=== PATIENT | female | born 1995 | race Hispanic/Latino ===

== ENCOUNTER 2018-02-22 14:57 | Emergency (ER) | payer OTHER, MEDICAID, SELFPAY ==
[2018-02-22 15:12] VITALS: BP 121/76; PULSE 89; RESP 15; TEMP 36.1; O2SAT 100; BMI 29.2
--- NOTE | 2018-02-22 15:16 | DI.RAD.S_ITS ---
PROCEDURE: XR ELBOW LT MIN 3V INDICATIONS: left elbow pain after fall yesterday TECHNIQUE: 3 views of the elbow were acquired. COMPARISON: None. FINDINGS: Bones: No fractures or dislocations. No suspicious bony lesions. Soft tissues: No elbow joint effusion. No suspicious soft tissue calcifications. IMPRESSION: No osseous trauma found. Dictated by: Neymar Jacobs M.D. on 02/22/2018 at 15:38 Approved by: Neymar aJcobs M.D. on 02/22/2018 at 15:40
--- NOTE | 2018-02-22 16:35 | ED_ITS ---
HPI - Extremity Injury (Upper) <SOL Ca - Last Filed: 02/22/18 17:43> General Chief Complaint: Extremity Injury, Upper Stated Complaint: FALL LEFT ARM HURTS Time Seen by Provider: 02/22/18 16:19 Source: patient Mode of arrival: ambulatory Limitations: no limitations History of Present Illness HPI narrative: Patient is a 22-year-old female who presents with chief complaint of left elbow pain. She states she was walking down the stairs yesterday and tripped and hit her left elbow hard against a railing. She states she presents complaining of left elbow pain. She states that it is hard to open her elbow all the way she complains of transient tingling in her left hand. She states she has a history of a ligament problem in her left elbow. She wants to make sure left elbow was not broken. She denies any swelling or bruising. Related Data Previous Rx's Medication Instructions Recorded tramadol 50 mg PO Q6H PRN #7 tab 02/22/18 Allergies Allergy/AdvReac Type Severity Reaction Status Date / Time amoxicillin Allergy Unknown Verified 02/22/18 15:12 Iodinated Contrast- Oral and Allergy Verified 02/22/18 15:12 IV Dye Review of Systems <SOL Ca - Last Filed: 02/22/18 17:43> Review of Systems GENERAL: Denies chills, fatigue, malaise, fever, sweats. HEENT: Denies sinus pain, ear pain, sore throat, difficulty swallowing, dizziness. RESPIRATORY: Denies dyspnea, cough, wheezing, hemoptysis, sputum. CARDIOVASCULAR: Denies chest pain, palpitations, orthopnea, edema, GASTROINTESTINAL: Denies nausea, vomiting, abdominal pain, diarrhea, constipation, melena. : Denies dysuria, frequency, incontinence, hematuria, urinary retention. MUSCULOSKELETAL: see HPI SKIN: See HPI NEUROLOGIC: Denies weakness, headache, numbness, change in speech, confusion, seizures, incoordination. PSYCHIATRIC: No concerning psychosocial issues. 12 point review of systems is negative except for those stated above Exam <SOL Ca - Last Filed: 02/22/18 17:43> Narrative Exam Narrative: GENERAL: This is a well-nourished, well-developed patient, In no acute distress HEAD: Atraumatic. Normocephalic. No temporal or scalp tenderness. EYES: Pupils equal round and reactive. Extraocular motions intact. No scleral icterus. No injection or drainage. ENT: Nose without bleeding, purulent drainage or septal hematoma. Throat without erythema, tonsillar hypertrophy or exudate. Uvula midline. Airway patent. NECK: Trachea midline. No JVD or lymphadenopathy. Supple, nontender, no meningeal signs. CARDIOVASCULAR: Regular rate and rhythm without murmurs, gallops, or rubs. RESPIRATORY: Clear to auscultation. Breath sounds equal bilaterally. No wheezes , rales, or rhonchi. GASTROINTESTINAL: Abdomen soft, non-tender, nondistended. No hepato-splenomegaly , or palpable masses. No guarding. EXTREMITIES: Generalized pain to palpation left elbow. Patient can extend elbow to approximately 160?. Positive radial pulse left hand. Patient is able to flex left elbow fully, pronate and supinate left forearm BACK: Nontender without deformity or crepitance. No flank tenderness. NEURO: AOx3. SKIN: no visible ecchymosis or erythema noted left elbow. Initial Vital Signs Initial Vital Signs: Vital Signs Temperature 97.0 F L 02/22/18 15:12 Pulse Rate 89 02/22/18 15:12 Respiratory Rate 15 02/22/18 15:12 Blood Pressure 121/76 02/22/18 15:12 Pulse Oximetry 100 02/22/18 15:12 <Castro Aguilar DO - Last Filed: 02/22/18 20:04> Initial Vital Signs Initial Vital Signs: Vital Signs Temperature 97.0 F L 02/22/18 15:12 Pulse Rate 89 02/22/18 15:12 Respiratory Rate 15 02/22/18 15:12 Blood Pressure 121/76 02/22/18 15:12 Pulse Oximetry 100 02/22/18 15:12 Course <CASSIE CaBC - Last Filed: 02/22/18 17:43> Orders Ordered: ED Orders 02/22/18 15:16 XR elbow LT min 3V Stat Discontinued Medications Tramadol HCl (Ultram) 50 mg PO NOW ONE Stop: 02/22/18 16:33 Vital Signs - 8 hr 02/22/18 15:12 Temperature 97.0 F L Pulse Rate 89 Respiratory Rate 15 Blood Pressure 121/76 Pulse Oximetry 100 <Castro Aguilar DO - Last Filed: 02/22/18 20:04> Orders Ordered: ED Orders 02/22/18 15:16 XR elbow LT min 3V Stat Discontinued Medications Tramadol HCl (Ultram) 50 mg PO NOW ONE Stop: 02/22/18 16:33 Vital Signs - 8 hr 02/22/18 15:12 Temperature 97.0 F L Pulse Rate 89 Respiratory Rate 15 Blood Pressure 121/76 Pulse Oximetry 100 [facility] - Extremity Injury (Upper) <SOL Ca - Last Filed: 02/22/18 17:43> Imaging Data elbow xray : Radiologist's impression: [address] [address] XRay Report Signed Patient: Omaira Aguirre#: [id number] : 1995Acct:[id number] Age/Sex: 22 / FDate of Service: 02/22/18 Loc: ED Accession Number: [id number] Procedure: XR elbow LT min 3V Ordering Provider: Castro Aguilar D.O. PROCEDURE: XR ELBOW LT MIN 3V INDICATIONS: left elbow pain after fall yesterday TECHNIQUE: 3 views of the elbow were acquired. COMPARISON: None. FINDINGS: Bones: No fractures or dislocations. No suspicious bony lesions. Soft tissues: No elbow joint effusion. No suspicious soft tissue calcifications. IMPRESSION: No osseous trauma found. Dictated by: Neymar Jacobs M.D. on 02/22/2018 at 15:38 Approved by: Neymar Jacobs M.D. on 02/22/2018 at 15:40 [facility] Narrative Medical decision making narrative: patient is a healthy 22-year-old female who presents with chief complaint of left elbow injury which is isolated after fall. X-ray shows no acute fracture. Given her very slightly reduced range of motion and history, I offered to splint her arm. She declined a splint but happily accepted a sling. I encouraged her to follow up with primary care provider or Orthopedics that she has already seen for the elbow. the patient was neurovascularly intact and we discussed at length return precautions. Discharge Plan Departure Patient Disposition: Home Clinical Impression: Elbow pain Discharge Date/Time: 02/22/18 16:47 Interventions: ED Discharge Assessment Last Done: 02/22/18 16:47 Instructions: How to Use a Sling, How To Perform RICE (Rest, Ice, Compress, Elevate), DI for Elbow Pain Activity Restrictions/Additional Instructions: Your x-ray today had no fractures found. However given your discomfort, we are placing her in a sling. Please use rest ice compression elevation. I gave her prescription for tramadol which is a narcotic pain reliever. Please take this as needed for pain. Please follow-up with her own orthopedist. I have also given you a contact information for [facility]. You could follow up with them instead if you prefer. Prescriptions: New tramadol 50 mg tablet 50 mg PO Q6H PRN (Reason: pain) Qty: 7 RF: 0 Referrals: [facility] [Outside] Misha Castorena MD [Primary Care Provider] - <Castro Aguilar DO - Last Filed: 02/22/18 20:04> [facility] ED Attending Socrates Attestation: I was immediately available in the department for consultation. Documentation has been reviewed. I agree with assessment and plan.
== END 2018-02-22 16:47 | disposition home or self-care (01) ==
PROVIDERS: Emergency Provider Nurse Practitioner Family
DX: M79.602 Pain in left arm (principal)
CPT/HCPCS: 73080; 99282; 99283